=== PATIENT | female | born 1990 | race Caucasian/White ===

== ENCOUNTER 2022-11-21 07:57 | Emergency (ER) | payer BC, SELFPAY ==
[2022-11-21] VITALS (29 sets, daily range): BP systolic 97–136; BP diastolic 52–116; PULSE 87–155; RESP 14–27; TEMP 36.7–38.4; O2SAT 92–98
--- NOTE | 2022-11-21 08:01 | W.ED.GENAD ---
Discharge Plan Disposition Patient Disposition: Home Condition: Stable Discharge Details Clinical Impression: Acute streptococcal pharyngitis Primary Care Provider: Leslie To ED Provider: Margie Anderson Home Meds and New Rx's Prescriptions: Continued metformin 500 mg Tablet 1,000 mg PO BID atorvastatin 20 mg Tablet 20 mg PO DAILY valacyclovir 500 mg Tablet 500 mg PO DAILY levothyroxine 25 mcg Tablet 25 mcg PO DAILY lisinopril 10 mg Tablet 10 mg PO DAILY promethazine 25 mg Tablet 25 mg PO QID PRN ergocalciferol (vitamin D2) 1,250 mcg (50,000 unit) Capsule 1,250 mcg PO QWEEK escitalopram oxalate 20 mg Tablet 20 mg PO DAILY insulin degludec 100 unit/mL (3 mL) Insulin Pen 88 unit SUBCUT DAILY empagliflozin 10 mg Tablet 10 mg PO DAILY (DME) FreeStyle Jannet 2 Sensor Kit MISCELLANEOUS semaglutide 2 mg/dose (8 mg/3 mL) Pen Injector 2 mg SUBCUT QWEEK Discharge Instructions Instructions: Pharyngitis (ED) Additional Instructions: You tested positive for strep throat today. You were given an antibiotic injection here in the emergency department. Drink plenty of fluids and get plenty of rest. Alternate tylenol and motrin as needed and directed for pain. 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 Please take your oral diabetic medications as directed when you get home today. Follow-up with your primary care doctor in 1 week. Return to the emergency department with any worsening or new concerning symptoms. Stand Alone Forms: Work Release Discharge Data Discharge Date/Time-TO BE ENTERED AT DEPARTURE: 11/21/22 11:48 Discharge Physician: Margie Anderson Medical Decision Making 0810 -- 32-year-old female with a history of morbid obesity and type 2 diabetes presents for sore throat and headache for the past 3 days, fever yesterday. Patient appears uncomfortable. She appears to be having difficulty speaking due to sore throat but does not have a muffled or hot potato voice. Heart rate 155 on arrival. Temp 101.1. She reports taking 250 mg of Tylenol this morning which discussed that usually this is a 325 mg or 500 mg tablet but she reports it was 250 mg 2 hours ago. Patient appears uncomfortable. She has bilateral tonsillar edema, erythema and exudates. Uvula is midline and there is no evidence of peritonsillar abscess, drooling, trismus or submandibular swelling. Lung sounds clear throughout. Rapid strep positive on arrival. Her fingerstick glucose is 254. Discussed with patient that she is tachycardic with high blood sugar, would recommend IV placement for IV fluid hydration to help with potentially lowering her glucose and to obtain screening labs and provide hydration as she is not having difficulty swallowing. We will also give a dose of Toradol and Decadron for pain relief and inflammation. Discussed that secondary to her difficulty swallowing pills, Bicillin injection would be recommended for strep and she is agreeable. Labs reviewed. Her glucose is 236 but she has normal bicarb and anion gap. VBG notes pH 7.45, PCO2 34. Urinalysis notes ketones but no evidence of infection. 1130 --recheck glucose slightly downtrending to 223. Heart rate much improved to 90s and she is now afebrile. Patient appears much more comfortable. She is able to speak better and is scrolling through her phone. She states she feels she can swallow her diabetes pills today. 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 Advised to follow up with the primary care doctor for re-evaluation. Usual and customary return precautions given prior to discharge. Medical Records Medical records reviewed: Yes I reviewed the patient's medical records. Lab Data Lab results reviewed: Yes I reviewed the patient's lab results. Labs: 11/21/22 09:30 Urine - Reflex from Ua Urine Culture - Preliminary Gram Positive Paty,Mixed Laboratory Tests Range/Units 11/21/22 11/21/22 11/21/22 08:32 08:32 08:32 WBC (4.4-10.8) 10^3/uL 13.65 H RBC (3.93-5.22) 10^6/uL 4.65 Hgb (11.2-15.7) g/dL 13.6 Hct (36.0-46.0) % 40.8 MCV (80-95) fL 88 MCH (27.0-33.0) pg 29.2 MCHC (32.0-36.0) % 33.3 RDW (11.7-14.6) % 14.3 Plt Count (130-400) 10^3/uL 255 MPV (8.0-11.0) fL 10.3 Immature Gran % 0.5 Neutrophils % 81.4 Lymphocytes % 9.3 Monocytes % 6.4 Eosinophils % 1.7 Basophils % 0.7 Nucleated RBC % (0.0-0.3) % 0.0 Absolute Neutrophils (1.2-6.7) 10^3/uL 11.11 H Absolute Lymphocytes (1.2-3.4) 10^3/uL 1.27 Absolute Monocytes (0.1-0.8) 10^3/uL 0.87 H Absolute Eosinophils (0.0-0.7) 10^3/uL 0.23 Absolute Basophils (0.0-0.2) 10^3/uL 0.10 VBG pH (7.31-7.41) VBG pCO2 (41-51) mmHg VBG pO2 mmHg VBG HCO3 (23-28) mmol/L VBG Total CO2 (24-29) mmol/L VBG O2 Saturation % VBG Base Excess (-2-3) mmol/L Sodium (136-145) mmol/L 135 L Potassium (3.5-5.1) mmol/L 4.1 Chloride (98-107) mmol/L 102 Carbon Dioxide (21.0-32.0) mmol/L 23.2 Anion Gap (3-11) mmol/L 9.8 BUN (7-18) mg/dL 9 Creatinine (0.55-1.02) mg/dL 0.8 Est GFR (CKD-EPI 2020) (mL/min/1.73m2) 101.59 Glucose (74-106) mg/dL 236 H Calcium (8.5-10.1) mg/dL 9.0 Total Bilirubin (0.2-1.0) mg/dL 1.0 AST (15-37) U/L 19 ALT (14-59) U/L 35 Alkaline Phosphatase (46-116) U/L 95 Total Protein (6.4-8.2) g/dL 8.1 Albumin (3.4-5.0) g/dL 3.3 L Serum HCG, Qual Negative Urine Color (Yellow) Urine Clarity (Clear) Urine pH (5-8) Ur Specific [place] (1.005-1.025) Urine Protein (Negative) mg/dL Urine Ketones (Negative) mg/dL Urine Blood (Negative) Urine Nitrite (Negative) Urine Bilirubin (Negative) Urine Urobilinogen (Up to 0.2) mg/dL Ur Leukocyte Esterase (Negative) Urine RBC (0-2) HPF Urine WBC (0-5) HPF Ur Epithelial Cells (Negative) HPF Urine Crystals (Negative) HPF Urine Bacteria (Negative) HPF Urine Casts (Negative) LPF Urine Mucus (Negative) Ur Culture Indicated? Urine Glucose (Negative) mg/dL Range/Units 11/21/22 11/21/22 08:32 09:30 WBC (4.4-10.8) 10^3/uL RBC (3.93-5.22) 10^6/uL Hgb (11.2-15.7) g/dL Hct (36.0-46.0) % MCV (80-95) fL MCH (27.0-33.0) pg MCHC (32.0-36.0) % RDW (11.7-14.6) % Plt Count (130-400) 10^3/uL MPV (8.0-11.0) fL Immature Gran % Neutrophils % Lymphocytes % Monocytes % Eosinophils % Basophils % Nucleated RBC % (0.0-0.3) % Absolute Neutrophils (1.2-6.7) 10^3/uL Absolute Lymphocytes (1.2-3.4) 10^3/uL Absolute Monocytes (0.1-0.8) 10^3/uL Absolute Eosinophils (0.0-0.7) 10^3/uL Absolute Basophils (0.0-0.2) 10^3/uL VBG pH (7.31-7.41) 7.45 H VBG pCO2 (41-51) mmHg 34 L VBG pO2 mmHg 51 VBG HCO3 (23-28) mmol/L 24 VBG Total CO2 (24-29) mmol/L 21 L VBG O2 Saturation % 90 VBG Base Excess (-2-3) mmol/L 0 Sodium (136-145) mmol/L Potassium (3.5-5.1) mmol/L Chloride (98-107) mmol/L Carbon Dioxide (21.0-32.0) mmol/L Anion Gap (3-11) mmol/L BUN (7-18) mg/dL Creatinine (0.55-1.02) mg/dL Est GFR (CKD-EPI 2020) (mL/min/1.73m2) Glucose (74-106) mg/dL Calcium (8.5-10.1) mg/dL Total Bilirubin (0.2-1.0) mg/dL AST (15-37) U/L ALT (14-59) U/L Alkaline Phosphatase (46-116) U/L Total Protein (6.4-8.2) g/dL Albumin (3.4-5.0) g/dL Serum HCG, Qual Urine Color (Yellow) Yellow Urine Clarity (Clear) Clear Urine pH (5-8) 6.0 Ur Specific [place] (1.005-1.025) 1.025 Urine Protein (Negative) mg/dL 100 H Urine Ketones (Negative) mg/dL 40 H Urine Blood (Negative) Negative Urine Nitrite (Negative) Negative Urine Bilirubin (Negative) Small H Urine Urobilinogen (Up to 0.2) mg/dL 1.0 H Ur Leukocyte Esterase (Negative) Negative Urine RBC (0-2) HPF 0-2 Urine WBC (0-5) HPF 0-2 Ur Epithelial Cells (Negative) HPF Rare Urine Crystals (Negative) HPF Negative Urine Bacteria (Negative) HPF Few Urine Casts (Negative) LPF Negative Urine Mucus (Negative) Trace Ur Culture Indicated? Yes Urine Glucose (Negative) mg/dL 500 H ECG Data Attestation: I personally reviewed and interpreted this ECG (s) as follows: HPI General Mode of arrival: ambulatory. Date/Time Provider Initiated Documentation: 11/21/22 07:58. Limitations to Documentation: no limitations. Information obtained by: patient. HPI Narrative: Patient is a 32-year-old female with history of type 2 diabetes and morbid obesity presents with fever, sore throat and headache for the past 3 days. She states the pain radiates from both sides of her throat up both sides of her neck and into both ears. Patient states she took 250 mg of Tylenol this morning at 6 AM. Patient states she has not seen any medical provider for the symptoms yet. She also reports that her glucometer was recalled recently and she has not been able to check her blood sugar for the past week. She states prior to that it was in the 140s. Patient states she has been unable to take her metformin and Jardiance pills because of a sore throat and difficulty swallowing. She has been able to take her insulin. She states she had a fever of 102 yesterday. She has not taken any Motrin today. Patient admits to diffuse headache. She denies any green nasal discharge, cough with green sputum. She denies any difficulty breathing, vomiting or diarrhea. Related Data Home Medications Medication Instructions Recorded Confirmed atorvastatin 20 mg tablet 20 mg PO DAILY 11/21/22 11/21/22 empagliflozin 10 mg tablet 10 mg PO DAILY 11/21/22 11/21/22 ergocalciferol (vitamin D2) 1,250 1,250 mcg PO QWEEK 11/21/22 11/21/22 mcg (50,000 unit) capsule escitalopram oxalate 20 mg tablet 20 mg PO DAILY 11/21/22 11/21/22 flash glucose sensor (FreeStyle 11/21/22 11/21/22 Jannet 2 Sensor kit) insulin degludec 100 unit/mL (3 88 unit subcut DAILY 11/21/22 11/21/22 mL) subcutaneous pen levothyroxine 25 mcg tablet 25 mcg PO DAILY 11/21/22 11/21/22 lisinopril 10 mg tablet 10 mg PO DAILY 11/21/22 11/21/22 metformin 500 mg tablet 1,000 mg PO BID 11/21/22 11/21/22 promethazine 25 mg tablet 25 mg PO QID PRN 11/21/22 11/21/22 semaglutide 2 mg/dose (8 mg/3 mL) 2 mg subcut QWEEK 11/21/22 11/21/22 subcutaneous pen injector valacyclovir 500 mg tablet 500 mg PO DAILY 11/21/22 11/21/22 Allergies Allergy/AdvReac Type Severity Reaction Status Date / Time liraglutide [From Victoza] AdvReac Intermediate Nausea Unverified 11/21/22 08:08 General Stated Complaint: Sorethroat JORDI: 3 Review of Systems All systems reviewed & are unremarkable except as noted in HPI and below Constitutional Constitutional: Reports as per HPI, Denies chills and Denies fever(s) Eyes Eyes: Denies blurry vision ENT Ears, Nose, Mouth, and Throat: Denies dizziness, Reports otalgia, Reports sore throat and Denies throat swelling Cardiovascular Cardiovascular: Denies chest pain and Denies dyspnea Respiratory Respiratory: Denies cough and Denies dyspnea Gastrointestinal Gastrointestinal: Denies abdominal pain, Denies diarrhea and Denies vomiting Genitourinary Genitourinary: Denies hematuria and Denies dysuria Musculoskeletal Musculoskeletal: Denies back pain and Denies numbness Integumentary/Breasts Skin/Breast: Denies lesions and Denies rash Neurologic Neurologic: Denies dizziness, Denies localized weakness and Denies numbness Allergic/Immunologic Allergic/Immunologic: Denies throat swelling PFSH All Active Problems (Updated 11/21/22 @ 11:40 by Margie Anderson DO) Acute streptococcal pharyngitis (Acute) Medical History (Updated 11/21/22 @ 11:40 by Margie Anderson DO) Type 2 diabetes mellitus Surgical History (Updated 11/21/22 @ 08:28 by Margie Anderson DO) H/O total cystectomy Left arm Social History Smoking/Tobacco Use Status: Never Smoking risk assessment performed?: Yes Alcohol Intake: current Alcohol Intake frequency: holidays/special occasions only Drug use: Never Substance use type: does not use Exam Const General: cooperative and no acute distress Orientation: alert, awake and oriented x3 HENMT Head: normal to inspection Ears: hearing grossly normal bilaterally, external ears normal and TM's normal bilaterally General nose exam: external nose normal Mouth: oral mucosae normal Throat: uvula midline, no peritonsillar masses and posterior oropharynx abnormal edema, erythema and exudates Eyes General: appearance normal, both eyes and all related structures Neck Neck: normal visual inspection, no meningeal signs, trachea midline, supple, no anterior neck swelling and No submandibular swelling Lymphatic: lymphadenopathy (bilateral anterior cervical ) Resp Effort & Inspection: normal respiratory effort and able to speak in complete sentences Auscultation: clear to auscultation bilaterally Cardio Rate: tachycardic Rhythm: regular rhythm Skin General skin exam: no rashes or lesions noted Neuro General: patient alert, patient awake and patient oriented x3 Motor: muscle tone normal throughout Extrem General: normal to inspection and full ROM Psych Appearance: grossly normal Affect: normal affect
[2022-11-21] MEDS: Normal Saline 1,000 ML 1000 ML IV ×2 (08:33→10:24)
[2022-11-21] MEDS: Dexamethasone 10 MG/ML VIAL IVP (08:36)
[2022-11-21] MEDS: Ketorolac 30 MG/ML VIAL IVP (08:36)
[2022-11-21 08:42] LABS: BE (Venous) 0 mmol/L (-2-3); HCO3 (Venous) 24 mmol/L (23-28); O2 Sat (Venous) 90 %; TCO2 (Venous) 21 mmol/L (24-29); pCO2 (Venous) 34 mmHg (41-51); pH (Venous) 7.45 (7.31-7.41); pO2 (Venous) 51 mmHg
[2022-11-21 08:43] LABS: Abs Immature Grans 0.07 10^3/uL (0.0-0.06); Absolute Eosinophil Count 0.23 10^3/uL (0.0-0.7); Absolute Lymphocyte Count 1.27 10^3/uL (1.2-3.4); Absolute Monocyte Count 0.87 10^3/uL (0.1-0.8); Absolute Neutrophil Count 11.11 10^3/uL (1.2-6.7); Basophils % 0.7; Eosinophils % 1.7; HCT 40.8 % (36.0-46.0); HGB 13.6 g/dL (11.2-15.7); Immature Grans % 0.5; Lymphocytes % 9.3; MCH 29.2 pg (27.0-33.0); MCHC 33.3 % (32.0-36.0); MCV 88 fL (80-95); MPV 10.3 fL (8.0-11.0); Monocytes % 6.4; Neutrophils % 81.4; Platelet Count 255 10^3/uL (130-400); RBC 4.65 10^6/uL (3.93-5.22); RDW 14.3 % (11.7-14.6); RDW-SD 45.5 fL; WBC 13.65 10^3/uL (4.4-10.8)
[2022-11-21 09:38] LABS: ALT 35 U/L (14-59); AST 19 U/L (15-37); Albumin 3.3 g/dL (3.4-5.0); Alkaline Phosphatase 95 U/L (46-116); Anion Gap 9.8 mmol/L (3-11); BUN 9 mg/dL (7-18); CO2 23.2 mmol/L (21.0-32.0); CREATININE 0.8 mg/dL (0.55-1.02); Chloride 102 mmol/L (98-107); Estimated GFR 101.59 (mL/min/1.73m2); Glucose 236 mg/dL (74-106); Potassium 4.1 mmol/L (3.5-5.1); Sodium 135 mmol/L (136-145); Total Protein 8.1 g/dL (6.4-8.2)
[2022-11-21 09:53] LABS: Bilirubin Small (Negative); Blood Negative (Negative); Clarity Clear (Clear); Glucose 500 mg/dL (Negative); Ketones 40 mg/dL (Negative); Leukocyte Esterase Negative (Negative); Nitrite Negative (Negative); Specific Gravity 1.025 (1.005-1.025)
[2022-11-21 10:00] LABS: Bacteria Few HPF (Negative); C & S Indicated? Yes; Casts Negative LPF (Negative); Crystals Negative HPF (Negative); Epithelial Cells Rare HPF (Negative); Mucus Trace (Negative); RBC 0-2 HPF (0-2); WBC 0-2 HPF (0-5)
[2022-11-21 10:13] LABS: HCG Qual (Serum) Negative
[2022-11-21] MEDS: ACETAMINOPHEN 1,000 MG/100 ML BTL 400 MG IVPB (10:23)
== END 2022-11-21 11:48 | disposition home or self-care (01) ==
PROVIDERS: Emergency Provider Physician Assistant; PCP Family Medicine
DX: J02.0 Streptococcal pharyngitis (principal)
CPT/HCPCS: 36416; 80053; 81025; 82805; 82962; 96361; 96365; 96372; 96375; 99284; 81003; 81015; 84703; 85025; 87086; J0131; J0561; J1100; J1885

== ENCOUNTER 2023-06-25 08:26 | Emergency (ER) | payer BC, SELFPAY ==
[2023-06-25 08:37] VITALS: BP 131/74; PULSE 98; RESP 15; TEMP 36.9; O2SAT 100
[2023-06-25 08:42] VITALS: BP 131/74; PULSE 98; RESP 15; TEMP 36.9; O2SAT 99
--- NOTE | 2023-06-25 08:51 | ED.GENADUL_ITS ---
Discharge Plan Disposition Patient Disposition: Home Condition: Stable Discharge Details Clinical Impression: Cellulitis of left foot Primary Care Provider: Leslie To ED Provider: Trever Ayon Home Meds and New Rx's Prescriptions: New doxycycline hyclate 100 mg tablet 100 mg PO BID 10 Days Qty: 20 0RF Continued metformin 500 mg Tablet 1,000 mg PO BID atorvastatin 20 mg Tablet 20 mg PO DAILY valacyclovir 500 mg Tablet 500 mg PO DAILY levothyroxine 25 mcg Tablet 25 mcg PO DAILY lisinopril 10 mg Tablet 10 mg PO DAILY promethazine 25 mg Tablet 25 mg PO QID PRN ergocalciferol (vitamin D2) 1,250 mcg (50,000 unit) Capsule 1,250 mcg PO QWEEK escitalopram oxalate 20 mg Tablet 20 mg PO DAILY insulin degludec 100 unit/mL (3 mL) Insulin Pen 88 unit SUBCUT DAILY empagliflozin 10 mg Tablet 10 mg PO DAILY (DME) FreeStyle Jannet 2 Sensor Kit MISCELLANEOUS semaglutide 2 mg/dose (8 mg/3 mL) Pen Injector 2 mg SUBCUT QWEEK Discharge Instructions Instructions: Doxycycline (By mouth), Cellulitis (ED) Additional Instructions: You were seen in the emergency department for the minor infection of your left foot, I have prescribed doxycycline sent to [facility] in [place]. To treat this infection for 10 days. Please take Tylenol and ibuprofen as needed, keep the area clean and dry. Please return for any severe increase in swelling, redness spreading up the leg, fever. Referrals: Leslie To [Primary Care Provider] - Discharge Data Discharge Date/Time-TO BE ENTERED AT DEPARTURE: 06/25/23 09:13 Medical Decision Making This dictation utilizes [id number] dictation software and may contain unedited grammatical errors. 32 y/o F presents to ED today with a chief complaint of infected minor cut at base of L great toe, noticed worsening 2 days ago from a week-old cut. Onset and characteristics include mild redness and warmth to touch, no fluctuance or drainage of pus from the area, denies lymphadenitis spreading up the foot, denies fevers. Patients' medical history: t2DM. Family and social history: noncontributory. Pertinent exam findings / vital signs include L Foot: minor <1.5cm healing laceration at base of L great toe, mild erythema surrounding this about 2cm in diameter, no purulent drainage, no lymphadenitis, sensation intact, no fluctuance. Differential / pathologies of concern include cellulitis, not abscess, not sepsis. Diagnostic studies of: -none. Interventions of: -outpatient Rx of doxycycline for cellulitis. ED Course/Assessment/Plan: Simple uncomplicated acute illness without signs of systemic involvement, Tdap UTD, started doxycycline with strict return criteria for worsening with risk factor of t2DM. Findings not consistent with sepsis, abscess. Disposition of Cellulitis of Left Foot. Patient verbalized understanding of the plan and return to ED criteria and engaged in shared decision making. Medical Records Medical records reviewed: Yes I reviewed the patient's medical records. HPI General Date/Time Provider Initiated Documentation: 06/25/23 08:46 . HPI Narrative: 32 year-old female presents to ED today by POV/ambulating with a chief complaint of possible infected minor cut on her L foot with onset of the minor cut about a week ago, noticed increasing redness and pain two days ago. Quality described as throbbing, feels warm, no radiation to purulent drainage, fever, red streaking up the leg, inability to ambulate. Severity is described as moderate. Palliating factors include nothing specific attempted. Provoking factors include nothing specific. Events leading up to the incident/Associated Symptoms: Patients' last Tdap was 02/2021, has t2DM. Patient not anticoagulated. Related Data Home Medications Medication Instructions Recorded Confirmed atorvastatin 20 mg tablet 20 mg PO DAILY 11/21/22 11/21/22 empagliflozin 10 mg tablet 10 mg PO DAILY 11/21/22 11/21/22 ergocalciferol (vitamin D2) 1,250 1,250 mcg PO QWEEK 11/21/22 11/21/22 mcg (50,000 unit) capsule escitalopram oxalate 20 mg tablet 20 mg PO DAILY 11/21/22 11/21/22 flash glucose sensor (FreeStyle 11/21/22 11/21/22 Jannet 2 Sensor kit) insulin degludec 100 unit/mL (3 88 unit subcut DAILY 11/21/22 11/21/22 mL) subcutaneous pen levothyroxine 25 mcg tablet 25 mcg PO DAILY 11/21/22 11/21/22 lisinopril 10 mg tablet 10 mg PO DAILY 11/21/22 11/21/22 metformin 500 mg tablet 1,000 mg PO BID 11/21/22 11/21/22 promethazine 25 mg tablet 25 mg PO QID PRN 11/21/22 11/21/22 semaglutide 2 mg/dose (8 mg/3 mL) 2 mg subcut QWEEK 11/21/22 11/21/22 subcutaneous pen injector valacyclovir 500 mg tablet 500 mg PO DAILY 11/21/22 11/21/22 doxycycline hyclate 100 mg tablet 100 mg PO BID cellulitis 10 days 06/25/23 #20 tabs Previous Rx's Medication Instructions Recorded doxycycline hyclate 100 mg tablet 100 mg PO BID cellulitis 10 days 06/25/23 #20 tabs Allergies Allergy/AdvReac Type Severity Reaction Status Date / Time liraglutide [From Victoza] AdvReac Intermediate Nausea Unverified 11/21/22 08:08 General Stated Complaint: GenMedical JORDI: 4 Review of Systems All systems reviewed & are unremarkable except as noted in HPI and below PFSH All Active Problems (Updated 06/25/23 @ 08:52 by ROMI Flynn) Cellulitis of left foot (Acute) Medical History (Updated 06/25/23 @ 08:52 by ROMI Flynn) Type 2 diabetes mellitus Surgical History (Updated 11/21/22 @ 08:28 by Margie Anderson DO) H/O total cystectomy Left arm Social History Smoking/Tobacco Use Status: Never Smoking risk assessment performed?: Yes Alcohol Intake: current Alcohol Intake frequency: holidays/special occasions only Drug use: Never Substance use type: does not use Housing: apartment Do you feel safe at home: Yes Do you feel safe in your relationship?: Yes Exam Narrative Exam Narrative: GENERAL APPEARANCE: Well-nourished, non-toxic, awake and alert, atraumatic, no acute distress. SKIN: Warm, pink, dry, intact, without rashes/lesions/ulcerations. HEAD: Normocephalic, atraumatic, normal hair distribution for gender/age. EYES: Pupils PERRLA, EOMs intact without nystagmus, normal conjunctiva, no exudates on lids/lashes. ENT: Nares patent, no circumoral cyanosis, no facial swelling NECK: Supple, trachea midline, painless cervical ROM. LUNGS/CHEST: Non-labored respirations, normal A/P diameter, symmetrical expansion, no chest wall deformity HEART (CV/PV): Regular rate and rhythm without murmur, no peripheral edema, no JVD. ABDOMEN: Soft, non-distended, no guarding. MSK: Normal ROM, no swelling/deformity to bilateral UEs or LEs, moving all extremities without weakness, no cyanosis, spine midline without tenderness, normal curvature. L Foot: minor <1.5cm healing laceration at base of L great toe, mild erythema surrounding this about 2cm in diameter, no purulent drainage, no lymphadenitis, sensation intact, no fluctuance NEURO: Mental Status AAOx4 - alert to person, place, time, events No facial droop, no forehead involvement. Motor: No focal weakness - strength 5/5 in bilateral UEs and LEs, proximal and distal, symmetric. Sensory: sensation intact to light touch globally. Gait normal: patient ambulated without ataxia into ED room. PSYCH: euthymic, cooperative, pleasant, appropriate speech Course Vital Signs Vital signs: Vital Signs Temperature 36.9 C 06/25/23 08:37 Pulse 98 H 06/25/23 08:37 Respiratory Rate 15 06/25/23 08:37 Blood Pressure 131/74 06/25/23 08:37 Pulse Oximetry 100 06/25/23 08:37 Temperature 36.9 C 06/25/23 08:42 Temperature Source Oral 06/25/23 08:42 Pulse 98 H 06/25/23 08:42 Respiratory Rate 15 06/25/23 08:42 Respiratory Effort Normal, Non-Labored 06/25/23 08:42 Respiratory Depth Normal 06/25/23 08:42 Respiratory Pattern Normal 06/25/23 08:42 Blood Pressure 131/74 06/25/23 08:42 Blood Pressure Position Sitting 06/25/23 08:42 Pulse Oximetry 99 06/25/23 08:42 Oxygen Delivery Method Room Air 06/25/23 08:42 Oxygen Flow Rate 0 06/25/23 08:37
[2023-06-25 09:12] VITALS: PULSE 90; RESP 16; O2SAT 100
== END 2023-06-25 09:13 | disposition home or self-care (01) ==
PROVIDERS: Emergency Provider Physician Assistant; PCP Family Medicine
DX: E11.628 Type 2 diabetes mellitus with other skin complications (principal); L03.032 Cellulitis of left toe
CPT/HCPCS: 99283; 99284

== ENCOUNTER 2023-10-15 18:55 | Emergency (ER) | payer BC, SELFPAY ==
[2023-10-15 18:56] VITALS: BP 136/90; PULSE 91; RESP 20; TEMP 37; O2SAT 96
[2023-10-15 19:00] VITALS: BP 136/90; PULSE 101; PULSE 91; RESP 19
[2023-10-15 19:01] VITALS: PULSE 93; RESP 20
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
[2023-10-15 19:10] VITALS: PULSE 95; RESP 13
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
[2023-10-15 19:16] VITALS: BP 144/84; PULSE 91; PULSE 94; RESP 17
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
[2023-10-15] MEDS: Acetaminophen 500 MG TAB 1000 MG PO (20:32)
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
[2023-10-15 21:33] VITALS: BP 144/84; PULSE 94; RESP 17; TEMP 37; O2SAT 96
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
== END 2023-10-15 21:26 | disposition home or self-care (01) ==
PROVIDERS: Emergency Provider Physician Assistant; PCP Family Medicine
DX: S93.401A Sprain of unspecified ligament of right ankle, initial encounter (principal); M54.2 Cervicalgia; E11.9 Type 2 diabetes mellitus without complications; Z79.4 Long term (current) use of insulin; Z79.84 Long term (current) use of oral hypoglycemic drugs; V43.52XA Car driver injured in collision with other type car in traffic accident, initial encounter
CPT/HCPCS: 99284; 70450; 72125; 73610